=== PATIENT | female | born 1955 | race Caucasian/White ===

== ENCOUNTER 2021-07-23 23:56 | Inpatient (IN) | payer MEDICARE, BC ==
[~2021-07-23] VITALS: Ht 144.8 cm; Wt 77.1 kg
[~2021-07-23 23:56] MED LIST: ESTMED1.5T PO; HYDACE5 PO; LISHYD1012; LISI5 PO; MULVITMINF; PHENA200 PO; PROGESTERONE; SULTRIDS PO
[2021-07-24 00:23] LABS: BASOPHILS ABSOLUTE AUTO 0.04 K/mm3 (0.00-0.23); BASOPHILS PERCENT AUTO 0 % (0-2); EOSINOPHILS ABSOLUTE AUTO 0.25 K/mm3 (0.00-0.68); EOSINOPHILS PERCENT AUTO 3 % (0-6); Hematocrit 38.9 % (33.0-51.0); IMMATURE GRAN ABSOLUTE AUTO 0.03 K/mm3 (0.00-0.10); IMMATURE GRAN PERCENT AUTO 0 % (0-1); LYMPHOCYTES ABSOLUTE AUTO 1.51 K/mm3 (0.84-5.20); LYMPHOCYTES PERCENT AUTO 16 % (21-46); MONOCYTES ABSOLUTE AUTO 0.36 K/mm3 (0.16-1.47); MONOCYTES PERCENT AUTO 4 % (4-13); Mean Corpuscular HGB 29.9 pg (26.0-34.0); Mean Corpuscular HGB Conc 33.4 g/dL (31.5-36.5); Mean Corpuscular Volume 89 fL (80-100); Mean Platelet Volume 8.9 fL (9.1-12.4); NEUTROPHILS ABSOLUTE AUTO 7.18 K/mm3 (1.96-9.15); NEUTROPHILS PERCENT AUTO 77 % (41-73); Platelet Count 319 K/mm3 (150-400); RDW Coefficient Variation 12.5 % (11.7-14.2); RDW Standard Deviation 41.1 fL (35.1-46.3); Red Blood Cell Count 4.35 M/mm3 (3.80-5.20); White Blood Cell Count 9.37 K/mm3 (4.00-11.30)
[2021-07-24 01:05] LABS: Source, Urine Clean Catch
[2021-07-24 01:14] LABS: Bilirubin, Urine Neg (Neg); Blood, Urine Neg (Neg); Glucose Qualitative, Urine Neg (Neg); Ketones, Urine Neg (Neg); Leukocyte Esterase, Urine 1+ (Neg); Nitrite, Urine Neg (Neg); Protein, Urine Neg (Neg); Urobilinogen, Urine 2+ (Normal)
[2021-07-24 01:14] LABS: Alanine Aminotransfer (ALT/SGP 672 U/L (12-78); Albumin, Blood 3.5 g/dL (3.4-5.0); Albumin/Globulin Ratio 1.1 (0.8-1.8); Alk Phos 745 U/L (50-136); Anion Gap 14 mmol/L (6-16); Aspartate Aminotrans (AST/SGOT 524 U/L (12-37); Bilirubin, Total 1.8 mg/dL (0.1-1.0); Blood Urea Nitrogen 16 mg/dL (8-24); Bun/Creatinine Ratio 16.9 (12.0-20.0); CO2, Blood 20 mmol/L (21-32); Chloride, Blood 99 mmol/L (98-108); Creatinine, Blood 0.95 mg/dL (0.40-1.00); Globulin, Blood 3.3 g/dL (2.2-4.0); Glomerular Filtration Rate 59 (60-); Glucose, Blood 114 mg/dL (70-99); Potassium, Blood 4.5 mmol/L (3.5-5.5); Sodium, Blood 133 mmol/L (136-145); Total Protein, Blood 6.8 g/dL (6.4-8.2); Troponin I <0.015 ng/mL (0.000-0.040)
[2021-07-24 01:24] LABS: Appearance, Urine Clear (Clear); Color, Urine Yellow (P-Yellow)
[2021-07-24 01:25] LABS: Bacteria Mod /hpf; Red Blood Cells, Urine Not Seen /hpf (0-2); Squamous Epithelial Cells Mod /hpf (Few); White Blood Cells, Urine 0-2 /hpf (0-5)
[2021-07-24 04:53] LABS: Influenza A, PCR NEGATIVE (NEGATIVE); Influenza B, PCR NEGATIVE (NEGATIVE); Resp Syncytial Virus, PCR NEGATIVE (NEGATIVE); SARS-Cov-2 (COVID-19) PCR, MMC NEGATIVE (NEGATIVE)
[2021-07-24 05:10] LABS: BASOPHILS ABSOLUTE AUTO 0.04 K/mm3 (0.00-0.23); BASOPHILS PERCENT AUTO 0 % (0-2); EOSINOPHILS ABSOLUTE AUTO 0.02 K/mm3 (0.00-0.68); EOSINOPHILS PERCENT AUTO 0 % (0-6); Hemoglobin 13.6 g/dL (11.5-16.0); IMMATURE GRAN ABSOLUTE AUTO 0.04 K/mm3 (0.00-0.10); IMMATURE GRAN PERCENT AUTO 0 % (0-1); LYMPHOCYTES ABSOLUTE AUTO 0.86 K/mm3 (0.84-5.20); LYMPHOCYTES PERCENT AUTO 7 % (21-46); MONOCYTES ABSOLUTE AUTO 0.75 K/mm3 (0.16-1.47); MONOCYTES PERCENT AUTO 6 % (4-13); Mean Corpuscular HGB 29.8 pg (26.0-34.0); Mean Corpuscular HGB Conc 34.9 g/dL (31.5-36.5); Mean Corpuscular Volume 85 fL (80-100); Mean Platelet Volume 8.8 fL (9.1-12.4); NEUTROPHILS ABSOLUTE AUTO 11.07 K/mm3 (1.96-9.15); NEUTROPHILS PERCENT AUTO 87 % (41-73); Platelet Count 358 K/mm3 (150-400); RDW Coefficient Variation 12.5 % (11.7-14.2); RDW Standard Deviation 38.9 fL (35.1-46.3); Red Blood Cell Count 4.57 M/mm3 (3.80-5.20); White Blood Cell Count 12.78 K/mm3 (4.00-11.30)
[2021-07-24 06:20] LABS: Alanine Aminotransfer (ALT/SGP 739 U/L (12-78); Albumin, Blood 3.6 g/dL (3.4-5.0); Albumin/Globulin Ratio 1.1 (0.8-1.8); Alk Phos 804 U/L (50-136); Anion Gap 11 mmol/L (6-16); Aspartate Aminotrans (AST/SGOT 458 U/L (12-37); Bilirubin, Total 3.3 mg/dL (0.1-1.0); Blood Urea Nitrogen 14 mg/dL (8-24); Bun/Creatinine Ratio 17.8 (12.0-20.0); CO2, Blood 24 mmol/L (21-32); Calcium, Blood 11.4 mg/dL (8.5-10.1); Chloride, Blood 98 mmol/L (98-108); Creatinine, Blood 0.79 mg/dL (0.40-1.00); Globulin, Blood 3.4 g/dL (2.2-4.0); Glomerular Filtration Rate >60 (60-); Glucose, Blood 120 mg/dL (70-99); Potassium, Blood 4.1 mmol/L (3.5-5.5); Sodium, Blood 133 mmol/L (136-145)
--- NOTE | 2021-07-24 18:39 | NUR ---
PATIENT ARRIVED TO THE FLOOR TODAY FROM THE ER. PATIENT IS WAITING FOR A BED AT ANOTHER HOSPITAL FOR ERCP TO BE DONE. NO SIGNS OR SYMPTOMS ACUTE DISTRESS NOTED. CALL LIGHT AND WATER IN [place]. ABLE TO MAKE NEEDS AND WANTS KNOWN. IVF CONTINUE. PATIENT REMAINS NPO. WILL MONITOR.
--- NOTE | 2021-07-24 19:55 | NUR ---
COBRA TRANSFER DR SORIANO AWARE OF ROOM ASSIGNMENT FOR PATIENT TO [facility]. MD ON FLOOR TO SEE PT + INPUT TRANSFER ORDERS. DR HAVING ISSUES INPUTING TRANSFER ORDERS BUT VERBAL ORDERS GIVEN + COBRA TRANSFER INITIATED. AWAITING TO HEAR BACK WITH ROOM ASSIGNMENT FROM [facility] M[employer] SUPERVISOR.
--- NOTE | 2021-07-24 22:42 | NUR ---
VSS. PAIN CONTROLLED W/ PRN PAIN MEDICATIONS. IND IN ROOM. +VOIDING. IV FLUIDS RUNNING. NPO. TRANSFERRED TO [facility] IN [place] TO ROOM 6464. REPORT GIVEN TO ERNESTINE HOLLIDAY. DOCUMENTED IN PAPER CHART. NO ISSUES. TRANSFERRED OFF UNIT W/ PARAMEDICS AT 6125.
== END 2021-07-24 22:25 | disposition short-term general hospital (02) | DRG 446 ==
LOC: ER 23:56 → ERHOLD 23:57 → SURS 07-24 16:03
PROVIDERS: Emergency Medicine; Student in an Organized Health Care Education/Training Program; ADMIT Internal Medicine
DX: K80.51 Calculus of bile duct without cholangitis or cholecystitis with obstruction (principal); I10 Essential (primary) hypertension; K90.0 Celiac disease; G89.29 Other chronic pain; Z20.822 Contact with and (suspected) exposure to COVID-19; Z90.49 Acquired absence of other specified parts of digestive tract; Z98.890 Other specified postprocedural states; Z88.8 Allergy status to other drugs, medicaments and biological substances; Z79.899 Other long term (current) drug therapy; D72.829 Elevated white blood cell count, unspecified
CPT/HCPCS: 0241U; 36415; 74177; 74181; 80053; 81001; 83690; 84484; 85025; 87086; 93005; 93010; 96374; 96375; 96376; 99285-25; A9270; C9113; J2405; J2543; J3010; J7120; Q9967

== ENCOUNTER 2021-11-12 09:03 | Day surgery (SDC) | payer MEDICARE, BC ==
[~2021-11-12] VITALS: Ht 149.9 cm; Wt 76.8 kg
== END 2021-11-12 11:06 | disposition home or self-care (01) ==
LOC: ORSCSDS 09:03
PROVIDERS: Student in an Organized Health Care Education/Training Program
PROC: 0DBM8ZX Excision of Descending Colon, Via Natural or Artificial Opening Endoscopic, Diagnostic (ICD-10-PCS; principal; 2021-11-12 10:30)
PROC: 0DBN8ZX Excision of Sigmoid Colon, Via Natural or Artificial Opening Endoscopic, Diagnostic (ICD-10-PCS; principal; 2021-11-12 10:30)
DX: Z12.11 Encounter for screening for malignant neoplasm of colon (principal); Z86.010 Personal history of colon polyps; Z80.0 Family history of malignant neoplasm of digestive organs; K63.5 Polyp of colon; K57.30 Diverticulosis of large intestine without perforation or abscess without bleeding; Z87.19 Personal history of other diseases of the digestive system; I10 Essential (primary) hypertension; R73.9 Hyperglycemia, unspecified; E66.9 Obesity, unspecified; Z68.37 Body mass index [BMI] 37.0-37.9, adult; Z79.899 Other long term (current) drug therapy
CPT/HCPCS: 88305; 93005; 93010; J2704; J7120

== ENCOUNTER 2023-05-27 04:53 | Emergency (ER) | payer MEDICARE, BC ==
[~2023-05-27] VITALS: Ht 144.8 cm; Wt 74.8 kg
[2023-05-27 05:28] LABS: Source, Urine Clean Catch
[2023-05-27 05:30] LABS: Bilirubin, Urine Neg (Neg); Blood, Urine Neg (Neg); Glucose Qualitative, Urine Neg (Neg); Ketones, Urine Neg (Neg); Leukocyte Esterase, Urine Neg (Neg); Nitrite, Urine Neg (Neg); Protein, Urine 1+ (Neg); Urobilinogen, Urine NORM (Normal)
[2023-05-27 05:35] LABS: Appearance, Urine Clear (Clear); Color, Urine Yellow (P-Yellow)
[2023-05-27 05:56] LABS: BASOPHILS ABSOLUTE AUTO 0.05 K/mm3 (0.00-0.23); BASOPHILS PERCENT AUTO 1 % (0-2); EOSINOPHILS ABSOLUTE AUTO 0.62 K/mm3 (0.00-0.68); EOSINOPHILS PERCENT AUTO 10 % (0-6); Hematocrit 38.8 % (33.0-51.0); Hemoglobin 13.1 g/dL (11.5-16.0); IMMATURE GRAN ABSOLUTE AUTO 0.01 K/mm3 (0.00-0.10); IMMATURE GRAN PERCENT AUTO 0 % (0-1); LYMPHOCYTES ABSOLUTE AUTO 2.38 K/mm3 (0.84-5.20); LYMPHOCYTES PERCENT AUTO 38 % (21-46); MONOCYTES PERCENT AUTO 8 % (4-13); Mean Corpuscular HGB 30.5 pg (26.0-34.0); Mean Corpuscular HGB Conc 33.8 g/dL (31.5-36.5); Mean Corpuscular Volume 90 fL (80-100); Mean Platelet Volume 9.5 fL (9.1-12.4); NEUTROPHILS PERCENT AUTO 43 % (41-73); Platelet Count 286 K/mm3 (150-400); RDW Standard Deviation 43.2 fL (35.1-46.3); White Blood Cell Count 6.26 K/mm3 (4.00-11.30)
[2023-05-27 06:18] LABS: Albumin, Blood 3.5 g/dL (3.4-5.0); Bilirubin, Total 0.5 mg/dL (0.1-1.0); Bun/Creatinine Ratio 19.8 (12.0-20.0); Calcium, Blood 10.9 mg/dL (8.5-10.1); Creatinine, Blood 0.86 mg/dL (0.40-1.00); Globulin, Blood 3.5 g/dL (2.2-4.0); Potassium, Blood 4.5 mmol/L (3.5-5.5)
[2023-05-27] MEDS ORDERED: DOCU100 PO (07:13)
[2023-05-27 07:30] VITALS: BP 152/66
== END 2023-05-27 07:29 | disposition home or self-care (01) ==
LOC: ER 04:53
PROVIDERS: Emergency Medicine
DX: K59.01 Slow transit constipation (principal); I10 Essential (primary) hypertension; Z88.8 Allergy status to other drugs, medicaments and biological substances; Z91.048 Other nonmedicinal substance allergy status; Z79.899 Other long term (current) drug therapy
CPT/HCPCS: 74177; 80053; 85025; 99284-25; Q9967

== ENCOUNTER 2024-11-02 06:14 | Day surgery (SDC) | payer OTHER ==
[~2024-11-02] VITALS: Ht 144.8 cm; Wt 74.1 kg
[~2024-11-02 06:14] MED LIST changes: +DOCU100 PO
[2024-11-02] MEDS ORDERED: Lidocaine 1%-Epineph 1:200000 30 ML SDV ONE (06:39)
[2024-11-02] MEDS ORDERED: Lactated Ringer's 1,000 ML IV ONE ×2 (06:57→08:45)
[2024-11-02] MEDS ORDERED: Lisinopril-Hct1 EAC4 PO (06:59)
[2024-11-02] MEDS ORDERED: FentaNYL Citrate 50 MCG/ML 2 ML Injection ONE ×2 (07:25→08:39)
[2024-11-02] MEDS ORDERED: propofoL 20 ML IV ONE ×2 (07:25→08:20)
[2024-11-02] MEDS ORDERED: Rocuronium Bromide 10 MG/ML 5ML Injection IV ONE (07:25)
[2024-11-02] MEDS ORDERED: Dexamethasone Sod Phos 10 MG/ML 1ML VIAL ONE (07:25)
[2024-11-02] MEDS ORDERED: Sugammadex Sodium 200 MG/2ML SDV (100 MG/ML) ONE (07:37)
[2024-11-02] MEDS ORDERED: Phenylephrine HCl 100 MCG/ML-NS 10MLSYR (1MG/10ML) ONE ×2 (07:38→08:43)
[2024-11-02] MEDS ORDERED: ePHEDrine Sulfate 50 MG/ML 1ML Injection ONE (07:49)
[2024-11-02] MEDS ORDERED: Ondansetron HCl 2 MG / ML 2ML Vial ONE (08:14)
--- NOTE | 2024-11-02 08:36 | NUR ---
11/02/[address] FROM PATHOLOGY CONFIRMED SPECIMEN IS 611 MG ENLARGED HYPER CELLULAR PARATHYROID GLAND. DR WHEAT NOTIFIED.
--- NOTE | 2024-11-02 09:17 | NUR ---
11/02/24 0917 Agata Wilkinson PT TO [facility], DENIES NAUSEA AND PAIN AT THIS TIME. PT [phone].
[2024-11-02 09:56] VITALS: BP 102/65
== END 2024-11-02 10:27 | disposition home or self-care (01) ==
LOC: ORSCSDS 06:14
PROVIDERS: Otolaryngology
PROC: 0GTN0ZZ Resection of Right Inferior Parathyroid Gland, Open Approach (ICD-10-PCS; principal; 2024-11-02 07:30)
DX: E21.0 Primary hyperparathyroidism (principal); D34 Benign neoplasm of thyroid gland; I10 Essential (primary) hypertension; Z79.899 Other long term (current) drug therapy
CPT/HCPCS: 83970; 88305; 88331; J1100; J2371; J2405; J2704; J3010; J7120